=== PATIENT | female | born 1955 | race Hispanic/Latino ===

== ENCOUNTER → 2019-03-22 | Outpatient (CLI) | payer OTHER | END | disposition home or self-care (01) | LOC: OIH 10:46 | PROVIDERS: ATTEND Family Medicine | DX: J44.9 Chronic obstructive pulmonary disease, unspecified (principal); I11.9 Hypertensive heart disease without heart failure | CPT/HCPCS: 71046 ==

== ENCOUNTER 2023-03-26 15:04 | Emergency (ER) | payer OTHER ==
[~2023-03-26] VITALS: Ht 154.9 cm; Wt 72.6 kg
[2023-03-26 15:25] VITALS: BP 171/72; PULSE 57; RESP 16; O2SAT 97
[2023-03-26] MEDS ORDERED: IBUPROFEN 800 MG TAB PO ONE (17:30)
[2023-03-26] MEDS ORDERED: CYCLOBENZAPRINE HCL 10 MG TABLET PO ONE (17:30)
[2023-03-26] MEDS ORDERED: IBUP-2070 PO (18:27)
[2023-03-26] MEDS ORDERED: CYCL10TA16 PO (18:27)
== END 2023-03-26 19:09 | disposition home or self-care (01) ==
LOC: EDH 15:04
DX: S86.811A Strain of other muscle(s) and tendon(s) at lower leg level, right leg, initial encounter (principal); I10 Essential (primary) hypertension; Z98.890 Other specified postprocedural states; X58.XXXA Exposure to other specified factors, initial encounter; Y93.89 Activity, other specified; Y92.89 Other specified places as the place of occurrence of the external cause; Y99.8 Other external cause status
CPT/HCPCS: 29505; 73562

== ENCOUNTER → 2024-08-17 | Outpatient (CLI) | payer OTHER ==
[~2024-08-17] MED LIST: CYCL10TA16 PO; IBUP-2070 PO
[2024-08-17 16:43] LABS: ALBUMIN 3.7 g/dL (3.5-5.0); BILIRUBIN,TOTAL 0.6 mg/dL (0.2-1.0); CREATININE 0.8 mg/dL (0.5-1.0); POTASSIUM 4.3 mmol/L (3.5-5.1); TOTAL PROTEIN, SERUM 8.1 g/dL (6.0-8.3)
== END | disposition home or self-care (01) ==
LOC: LAB 13:13
PROVIDERS: ATTEND Student in an Organized Health Care Education/Training Program
DX: E78.2 Mixed hyperlipidemia (principal); R07.9 Chest pain, unspecified
CPT/HCPCS: 36415; 80053; 80061

== ENCOUNTER → 2024-08-23 | Outpatient (CLI) | payer OTHER ==
[~2024-08-23] MED LIST changes: +IOHEXOL 350 MG/ML 100ML INFUS..BTL IV ONE
--- NOTE | 2024-08-23 13:03 | HMCIMG ---
CT OF THE CHEST WITH CONTRAST- CT Cardiac Angio co-interpretation This is done as part of the CT cardiac angiogram study. The interpretation of the coronary arteries will be done by tube wrapper in a separate report. History: over-read Comparison: none CT Dose Index (CTDI): 77.90 mGy Dose Length Product (DLP): 493.40 total mGy PROTOCOL: Examination is done at 2.5 millimeter volumetric acquisition after contrast administration with Isovue 370, 100 cc IV, without complications. Photography is done at 5 millimeter thick intervals for the thorax. The examination begins above the heart and therefore the lung apices are incompletely included. The rest of the left lung is included but the right lung is only included up to its middle third. The periphery of the right lung is not included in the study. FINDINGS: The visualized part of the airway is preserved. The bony and soft tissue structures of the chest wall are unremarkable. The aorta is unremarkable. No mediastinal lymphadenopathy is seen. The lung windows demonstrate no worrisome pulmonary nodules, masses or infiltrates. There is no evidence of pulmonary embolism in the visualized lung segments. The upper abdominal views are unremarkable. Impression: No significant abnormalities identified.
== END | disposition home or self-care (01) ==
LOC: RAH 08:51
PROVIDERS: ATTEND Student in an Organized Health Care Education/Training Program
DX: R07.9 Chest pain, unspecified (principal)
CPT/HCPCS: 75574; Q9967

== ENCOUNTER → 2024-09-01 | Outpatient (CLI) | payer OTHER ==
[~2024-09-01] MED LIST changes: -IOHEXOL 350 MG/ML 100ML INFUS..BTL IV ONE
--- NOTE | 2024-09-04 14:16 | HMCSR ---
APPROVED REPORT EXAM: Two-dimensional and M-mode echocardiogram with Doppler and color Doppler. INDICATION ICD: R01.1 Cardiac murmur, unspecified 2D Dimensions RVDd3.5 cmLVEF(%)67.9 (>50%)LVED Vol(simp.)131.0 mL IVSd1.2 (0.7-1.1cm)FS(%)38 %LVES Vol(simp.)60.0 mL LVDd4.8 (3.8-5.6cm)Ao Root(2D)2.9 (2.0-3.7cm)LVEF(%, simp.)54 % PWd1.4 (0.7-1.1cm)LVOT diam1.9 (1.8-2.4cm)LA ESV INDEX (BP)49.76 mL/m2 LVDs3.0 (2.5-4.0cm)IVC diam2.2 cm Aortic Valve AoV Vmax2.3 m/Rosa M Peak GR20.6 mmHgLVOT Vmax1.0 m/s AoV VTI0.6 mAo Mean GR11.4 mmHgLVOT VTI0.26 m CHHAYA (VMAX)1.2 cm2Al P1/2T524 msAVA (VTI) 1.2 cm2 Mitral Valve MV E Vmax74.9 cm/sDECEL Vbyu219 ms MV A Vmax69.9 cm/sP 1/2 T56 ms E/A ratio1.1MVA (PHT)3.9 cm2 MR Max PG108 mmHg TDI E/E' Sabjac51.3E/E' Odvgnrt07.6 Pulmonary Valve PV Vmax1.0 m/sPV VTI0.29 mPV Mean GR2 mmHg PV Peak GR3.9 mmHg Tricuspid Valve TR Vmax2.7 m/sRAP (EST) 8 brDtPPFF15.8 mmHg TR Peak GR29.8 mmHg Left Ventricle Left ventricular cavity size is normal. There is mild to moderate concentric left ventricular hypertr ophy. LVEF is 50-55%. Grade 2 diastolic dysfunction. Right Ventricle The right ventricle is normal size. The right ventricular systolic function is normal. Atria The left atrium is severely dilated. The right atrium is moderately dilated. Aortic Valve Aortic valve is trileaflet. Aortic valve leaflets are sclerotic but open well. Mild aortic regurgitat ion. AV Dimensionless Index is 0.44 There is no aortic valvular stenosis. Mitral Valve Mitral valve leaflets are mildly sclerotic but open well. Mitral annular calcification is mild. Jessica l regurgitation is trace to mild. There is no mitral valve stenosis. Tricuspid Valve The tricuspid valve leaflets appear normal. There is mild tricuspid regurgitation. Right ventricular systolic pressure is estimated at 30-40 mmHg. Pulmonic Valve The pulmonic valve leaflets are thin and pliable; valve motion is normal. There is trace pulmonic lucia vular regurgitation. Great Vessels The aortic root is normal in size. IVC is dilated and collapses >50% with inspiration. Pericardium No pericardial effusion. Conclusion Left ventricular cavity size is normal. There is mild to moderate concentric left ventricular hypertrophy. LVEF is 50-55%. Grade 2 diastolic dysfunction. The right ventricle is normal size. The right ventricular systolic function is normal. The left atrium is severely dilated. The right atrium is moderately dilated. Mild aortic regurgitation. Mitral regurgitation is trace to mild. There is mild tricuspid regurgitation. Right ventricular systolic pressure is estimated at 30-40 mmHg. IVC is dilated and collapses >50% with inspiration. No pericardial effusion.
== END | disposition home or self-care (01) ==
LOC: SHCH 09:11
PROVIDERS: ATTEND Student in an Organized Health Care Education/Training Program
DX: I08.3 Combined rheumatic disorders of mitral, aortic and tricuspid valves (principal); R01.1 Cardiac murmur, unspecified
CPT/HCPCS: 93306

== ENCOUNTER → 2024-11-03 | Outpatient (CLI) | payer OTHER ==
--- NOTE | 2024-11-04 17:17 | HMCSR ---
APPROVED REPORT Laterality: Bilateral Indications Dizziness and Vertigo Doppler Spectral Velocity Analysis PSV / EDVPSV / EDV ECA (R) 369 / cm/sECA (L) 276 / cm/s dICA (R) 313 / 73 cm/sdICA (L) 187 / 38 cm/s Brina (R) 212 / 52 cm/smICA (L) 264 / 80 cm/s pICA (R) 164 / 50 cm/spICA (L) 171 / 34 cm/s dCCA (R) 92 / 24 cm/sdCCA (L) 107 / 21 cm/s mCCA (R) 118 / 12 cm/smCCA (L) 115 / 23 cm/s pCCA (R) 82 / 11 cm/spCCA (L) 112 / 27 cm/s Vert (R) 100 / cm/sVert (L) 96 / cm/s Subl. (R) 255 / cm/sSubl. (L) 296 / cm/s ICA/CCA 2.65ICA/CCA 2.30 Technologist Impression Mild to moderate plaque noted in the bilateral carotids. MYRA elevated velocities 313 cm/s suggestive of >70% stenosis. LICA elevated velocities 264 cm/s suggestive of >70% stenosis. Elevated velocities/ stenosis seen in the bilateral ECA'S Elevated velocities / stenosis seen in the bilateral SUBCL arteries. Bilateral vertebral arteries appear antegrade. Conclusion Mild to moderate plaque noted in the bilateral carotids. MYRA elevated velocities 313 cm/s suggestive of >70% stenosis. LICA elevated velocities 264 cm/s suggestive of >70% stenosis. Elevated velocities/ stenosis seen in the bilateral ECA'S Elevated velocities / stenosis seen in the bilateral SUBCL arteries. Bilateral vertebral arteries appear antegrade. Conclusion Mild to moderate plaque noted in the bilateral carotids. MYRA elevated velocities 313 cm/s suggestive of >70% stenosis. LICA elevated velocities 264 cm/s suggestive of >70% stenosis. Elevated velocities/ stenosis seen in the bilateral ECA'S Elevated velocities / stenosis seen in the bilateral SUBCL arteries. Bilateral vertebral arteries appear antegrade.
== END | disposition home or self-care (01) ==
LOC: SHCH 08:46
PROVIDERS: ATTEND Student in an Organized Health Care Education/Training Program
DX: I65.23 Occlusion and stenosis of bilateral carotid arteries (principal); R42 Dizziness and giddiness
CPT/HCPCS: 93880

== ENCOUNTER → 2024-12-14 | Outpatient (CLI) | payer OTHER ==
[~2024-12-14] MED LIST changes: +IOHEXOL-350 75 ML VIAL IV ONE
--- NOTE | 2024-12-14 12:00 | HMCIMG ---
CT ANGIO NECK HISTORY: No additional history given. COMPARISON: None TECHNIQUE: CT angiography of the neck was performed. The study was performed using angiographic technique with maximum intensity projection reconstruction images. FINDINGS: There are degenerative changes of the cervical spine. Parapharyngeal fat planes are preserved bilaterally. The airway is patent. Normal enhancement of the thyroid gland is noted. Visualized portion of the lung apices are unremarkable. The common, internal and external carotid arteries are visualized. There is 50% to 70% stenosis seen of the internal carotid arteries bilaterally. Both vertebral arteries are seen with antegrade flow. IMPRESSION: CTA Neck 1. Atherosclerotic disease. There is 50% to 70% stenosis seen of the internal carotid arteries bilaterally. CT was performed with one or more following dose reduction techniques: automated exposure control, adjustment of the mA and kv according to patient's size, or use of a iterative reconstruction technique.
== END | disposition home or self-care (01) ==
LOC: RAH 07:46
PROVIDERS: ATTEND Student in an Organized Health Care Education/Training Program
DX: I65.23 Occlusion and stenosis of bilateral carotid arteries (principal); M47.812 Spondylosis without myelopathy or radiculopathy, cervical region
CPT/HCPCS: 70498; Q9967

== ENCOUNTER 2025-02-01 05:38 | Day surgery (SDC) | payer OTHER ==
[2025-01-30 09:39] VITALS: BP 196/70; PULSE 48; RESP 13; TEMP 98
[2025-01-30 09:53] LABS: IMMATURE GRANULOCYTE ABSOLUTE 0.01 K/uL (0-1); NUCLEATED RED BLOOD CELLS 0.0 % (0.0-0.19); PLATELET COUNT (AUTO) 268 K/uL (130-400); RED BLOOD CELL COUNT(AUTO) 3.96 MIL/uL (4.00-5.50); RED CELL DISTRIBUTION WIDTH 13.8 % (11.0-15.5); WHITE BLOOD COUNT (AUTO) 8.7 K/uL (4.8-10.8)
[2025-01-30 09:54] LABS: APPEARANCE,URINE CLEAR (CLEAR); GLUCOSE, URINE (UA) NEGATIVE (NEGATIVE); LEUKOCYTE ESTERASE ,URINE NEGATIVE Leu/uL (NEGATIVE); NITRATE,URINE NEGATIVE (NEGATIVE); OCCULT BLOOD,URINE MODERATE (NEGATIVE)
[2025-01-30 09:56] LABS: ADD UA MICROSCOPIC YES
[2025-01-30 09:59] LABS: SQUAMOUS EPITHELIAL CELL,UR RARE /HPF (0-2)
[2025-01-30 10:03] LABS: INR 0.97 (0.85-1.15)
[2025-01-30 10:10] LABS: CREATININE 0.8 mg/dL (0.5-1.0); GLOMERULAR FILTR. RATE CALC 79.0 mL/min (>90); GLUCOSE,RANDOM 105.0 mg/dL (70-105); SODIUM SERUM 143.0 mmol/L (136-145); UREA NITROGEN, BLOOD 37.0 mg/dL (7-18)
--- NOTE | 2025-01-30 11:06 | EKG ---
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 sinoatrial exit block LVH with secondary repolarization abnormality Anterior ST elevation, probably due to LVH No previous ECG available for comparison Electronically Signed On 01-30-2025 22:14:27 CDT by Mahendra Leon Please click the below link to view image of tracing.
--- NOTE | 2025-01-30 11:28 | NUR ---
report reported ekg and medication list to jacklyn raman np. also informed pt c/o feeling very tired due to taking care of sick spouse. received instructions to have pt go to er. pt refused at this time. pt informed of reason for ER eval and risk. pt voiced understanding but stated she was gonna go drink coffee and then decide. jacklyn raman np made aware.
--- NOTE | 2025-01-30 14:51 | HMCIMG ---
EXAM: CR Chest, 1 View. CLINICAL HISTORY: PRE OP COMPARISON: None provided. FINDINGS: LUNGS: The lungs show no infiltrate or other acute finding. PLEURAL SPACES: No pleural effusion or pneumothorax. MEDIASTINUM: Cardiac size and mediastinal contours within normal limits. BONES: No aggressive appearing osseous lesion seen. IMPRESSION: No acute cardiopulmonary pathology is evident. /[place]
[2025-02-01] VITALS (10 sets, daily range): BP systolic 123–177; BP diastolic 46–95; PULSE 17–59; RESP 10–18; TEMP 97–97.5
[~2025-02-01] VITALS: Ht 157.5 cm; Wt 68.3 kg
[~2025-02-01 05:38] MED LIST changes: +AMLO-257 PO; +ASPI-1443 PO; -CYCL10TA16 PO; -IBUP-2070 PO; -IOHEXOL-350 75 ML VIAL IV ONE; +LOSA1TAB37 PO; +ROSU5TAB51 PO
[2025-02-01] MEDS: 0.9%NACL 1000ML 1,000 ML IV SCH (06:25)
[2025-02-01] MEDS ORDERED: IODIXANOL 320 MG/ML 100 ML VIAL ONE (07:11)
[2025-02-01] MEDS ORDERED: LIDOCAINE HCL 400MG/20ML VIAL ONE (07:11)
[2025-02-01] MEDS ORDERED: HEParin-NS 1,000 UNIT/500 ML 1,000 ML IV ONE (07:12)
[2025-02-01] MEDS ORDERED: NITROGLYCERIN 50MG VIAL ONE (07:12)
[2025-02-01] MEDS ORDERED: IOHEXOL 350 MG/ML 100ML INFUS..BTL IV ONE ×2 (07:26→08:11)
[2025-02-01] MEDS ORDERED: MIDAZOLAM HCL 1 MG/ML 2ML VIAL ONE ×2 (07:33→07:44)
[2025-02-01] MEDS ORDERED: SODIUM BICARB 50MEQ 50ML VIAL 50 ML ONE (07:35)
[2025-02-01] MEDS ORDERED: ATROPINE 1MG SYG IVP ONE (07:41)
[2025-02-01] MEDS ORDERED: ASPIRIN 325MG EC TAB PO ONE (08:43)
[2025-02-01] MEDS ORDERED: 0.9%NACL 1000ML 1,000 ML IV SCH (09:00)
[2025-02-01] MEDS ORDERED: CLOP-31 PO (09:39)
--- NOTE | 2025-02-01 09:39 | CCATH ---
PROCEDURE NOTE PROCEDURES: * Left heart catheterization. * Selective diagnostic right and left coronary arteriogram. * Balloon angioplasty and stent placement in the mid RCA with a 3.0 x 34 NC balloon. * Selective right and left carotid angiogram. * Conscious sedation for 60 minutes. INDICATIONS: * Coronary artery disease. * Recurrent angina. * Bilateral carotid artery stenosis by noninvasive studies. COMPLICATIONS: None. TOTAL CONTRAST: Approximately 120 mL. ____ DESCRIPTION OF PROCEDURE: The patient was taken to the cardiac catheterization lab after appropriate operative consents were signed. She was prepped and draped in the usual fashion. After conscious sedation was administered, the right common femoral artery was accessed utilizing ultrasound guidance. At this point, a 6-Mexican sheath was advanced in a retrograde fashion with a modified Seldinger technique. An FL4 6-Mexican catheter was then advanced over an indwelling wire and selectively engaged the ostium of the left main. Imaging was obtained in multiplane. The left main was a moderately sized vessel, which was free of significant stenosis. It bifurcated the LAD and a circumflex. The circumflex was a moderately sized vessel that gave rise to single branching OM, which had a 20% lesion in its proximal portion. The ongoing circ was small. The LAD was a moderately sized vessel to moderately large. It gave rise to several diagonals and septal perforators. The first diagonal was a moderately sized vessel that had a 60% ostial lesion. The second diagonal was a small vessel that had an 80% lesion. The mid LAD had a 40% to 50% stenotic lesion. The catheter was then removed and an FR4 6-Mexican catheter was advanced and placed in the left ventricular cavity. Left ventricular end-diastolic pressure measurement was obtained. Ventriculography was deferred. The patient has preserved left systolic function by echocardiographic studies. No gradient was noted across the aortic valve on pullback. The catheter was then engaged in the ostium of the right coronary artery. This was imaged in multiplane. The right coronary artery was a large vessel that gave rise to an acute marginal, PDA and branching PLVB system. The proximal portion of the RCA had a 20% lesion. The mid segment of the RCA had a long area of stenosis with 60% in the proximal portion of that stenotic segment and 80% in the mid portion of the stenotic segment and approximately 60% stenosis in the distal end of the stenotic segment at the level of the acute marginal branch. The PDA and PLVB system were normal. The catheter was then withdrawn and engaged in the right common carotid artery. Imaging was obtained in multiplane. The right common carotid artery was normal. It bifurcated into the right external and right internal carotid artery. The right external carotid artery had a 50% stenotic lesion. The right internal carotid artery had a tubular 50% stenotic lesion. The intracerebral circulation on the right was normal. The catheter was then withdrawn and engaged in the left common carotid artery, which was imaged in multiplane. This was utilized with digital acquisition. The left common carotid artery was normal. It bifurcated to an external and internal carotid artery. The left external carotid artery ostium had an 80% lesion. The left internal carotid artery had a tubular 30% to 40% stenotic lesion. The intracerebral circulation was normal. Given the patient's persistent symptoms, the decision was made to proceed with angioplasty and stenting of the RCA. An FR4 6-Mexican guide was selected. After full heparinization, a 0.014 wire was advanced to the distal RCA circulation. We then advanced a 3.0 x 34 [place] stent, which was deployed in the mid to distal segment covering the entire zone of disease. The stent was clearly under deployed by stent enhancement technique. We then advanced a 3.0 x 20 NC balloon, which was inflated to 22 atmospheres at 3.12 mm size with good final angiographic results. At this point, the procedure was completed, a Perclose was utilized with good hemostasis. The patient tolerated the procedure well and left the cardiac catheterization lab in stable condition. FINAL IMPRESSION: * Severe RCA stenosis with nonobstructive left coronary system disease and branch diagonal disease. * No aortic stenosis. * Preserved left ventricular systolic function by noninvasive studies. * Moderate bilateral internal carotid artery stenosis. * Successful balloon angioplasty and stent placement in the mid RCA with a 3.0 x 34 [place] stent post dilated with an NC 3.0 balloon to 22 atmospheres with good final angiographic results. PLAN: Continue medical management. TID: [id number] RECEIPT: [id number]
--- NOTE | 2025-02-01 14:22 | NUR ---
Full and complete discharge instructions given to Patient and Family both verbally and in writing. Explained Angiogram procedure precautions and follow up. Right groin site clean dry and intact. No evidence of bleeding, bruising or hematoma. Pedal pulses intact to BLE's. All questions answered. PIV removed with catheter tip intact. Family at bedside appearing supportive. W/C to POV with Family to home.
== END 2025-02-01 14:10 | disposition home or self-care (01) ==
LOC: DAH 05:38
PROVIDERS: ATTEND Internal Medicine Cardiovascular Disease
DX: I25.118 Atherosclerotic heart disease of native coronary artery with other forms of angina pectoris (principal); I65.23 Occlusion and stenosis of bilateral carotid arteries; I25.84 Coronary atherosclerosis due to calcified coronary lesion; I10 Essential (primary) hypertension; E78.5 Hyperlipidemia, unspecified; E78.2 Mixed hyperlipidemia; R07.9 Chest pain, unspecified; R06.83 Snoring; Z79.82 Long term (current) use of aspirin; Z79.899 Other long term (current) drug therapy
CPT/HCPCS: 80048; 83880; 85025; 85610; 85730; 81001; 36415; 71045; 93005; 36223; 85347 ×2; 93458; 99156; 99157 ×4; C9600; C1769; C1887; C1894 ×2; C1725; C1874; C1760; J3010; J3490 ×3; J0360; J1644 ×2; J2250 ×2; Q9967 ×3; A4215; A4335; A4222; A4221; A4663; A4216; A4606; Q9965 ×2; A4223 ×3; A4554; 96360; 96361; J0461